=== PATIENT | male | born 1980 | race Caucasian/White ===

== ENCOUNTER 2019-07-31 18:10 | Emergency (ER) | payer BC, OTHER ==
[~2019-07-31] VITALS: Ht 182 cm; Wt 73.6 kg
[2019-07-31] MEDS ORDERED: LACTATED RINGERS 1,000 ML IV STA (18:41)
[2019-07-31] MEDS ORDERED: KETOROLAC 30 MG/ML VIAL IVP ONE (18:45)
[2019-07-31] MEDS ORDERED: ONDANSETRON 4 MG/2 ML (SDV) Z0FRAN IVP ONE (18:45)
[2019-07-31 18:51] LABS: HEMATOCRIT 48 % (40-54); MEAN CORPUSCULAR HEMOGLOBIN 30 PG (25-34); MEAN CORPUSCULAR HGB CONC 33 G/DL (32-36); MEAN CORPUSCULAR VOLUME 88 FL (80-99); PLATELET COUNT 314 10^3/uL (130-400); RED CELL DISTRIBUTION WIDTH 12.9 % (10.0-14.5); WHITE BLOOD COUNT 8.3 10^3/uL (4.3-11.0)
[2019-07-31 18:52] LABS: BASOPHILS # (AUTO) 0.1 10^3/uL (0.0-0.1); BASOPHILS % (AUTO) 1 % (0-10); EOSINOPHILS # (AUTO) 0.2 10^3/uL (0.0-0.3); EOSINOPHILS % (AUTO) 2 % (0-10); LYMPHOCYTES # (AUTO) 2.5 X 10^3 (1.0-4.0); LYMPHOCYTES % (AUTO) 31 % (12-44); MONOCYTES # (AUTO) 0.8 X 10^3 (0.0-1.0); MONOCYTES % (AUTO) 9 % (0-12); NEUTROPHILS # (AUTO) 4.8 X 10^3 (1.8-7.8); NEUTROPHILS % (AUTO) 57 % (42-75)
--- NOTE | 2019-07-31 18:57 | ED Abdominal Pain ---
General Stated Complaint: ABD PAIN History of Present Illness Date Seen by Provider: Jul 31, 2019 Time Seen by Provider: 18:20 Initial Comments The patient is a 39-year-old male with a history of tobacco abuse and no chronic medical problems for which he takes daily medication and no history of abdominal surgery. He presents with concern for acute onset of sharp, focal, right lower quadrant abdominal discomfort which is nonradiating and about 7 out of 10 in severity, with onset about an hour prior to arrival. Patient has never had this abdominal discomfort before. Symptoms occur in the setting of approximately 5 days of constipation with patient reporting that he has been unable to pass a stool over that entire interval. He states this is very unusual for him. Associated nausea with dry heaving and decreased by mouth food intake each day over the past several days. No associated fevers, hematemesis, hematochezia, melena, upper respiratory congestion/rhinorrhea, cough, shortness of breath or chest pain, flank pain, dysuria or hematuria. Patient has a secondary concern regarding an area of his left midthoracic paraspinal back which is focally sore and tender. His back discomfort is worse with movement of his arms and twisting his torso and with direct palpation and improved with resting. 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 He denies any lower back pain, pain on the same side of his back as abdominal symptoms are noted, pain to his midline back at any point from high cervical to low lumbar, loss of bowel or bladder, saddle anesthesia, new lower extremity weakness, numbness, tingling, new urinary retention, use of intravenous illegal drugs. Allergies and Home Medications Allergies Coded Allergies: No Known Drug Allergies (Unverified , 07/31/19) Patient Home Medication List Home Medication List Reviewed: Yes Review of Systems Review of Systems Constitutional: see HPI All Other Systems Reviewed Negative Unless Noted: Yes (Negative excepted noted.) Past Pslwowf-Vjvshe-Qyckkt Hx Past Med/Social Hx: Reviewed Nursing Past Med/Soc Hx Patient Social History Recent Foreign Travel: No Contact w/Someone Who Travel: No Family Medical History Reviewed Nursing Family Hx Physical Exam Vital Signs Vital Signs - First Documented 07/31/19 18:15 Temp 36.5 Pulse 87 Resp 18 B/P (MAP) 129/95 (106) Pulse Ox 96 O2 Delivery Room Air Capillary Refill : Height/Weight/BMI Height: '" Weight: lbs. oz. kg; BMI Method: General Appearance: no apparent distress Exam Comments This is a middle-aged male appearing nontoxic and in no acute distress. Head is normocephalic and atraumatic. Neck is supple and nontender. Oropharynx is moist. Lungs are clear to auscultation in all stations. There is a normal S1 and S2 without rubs or gallops and capillary refill is appropriate, less than 2 seconds globally. Abdomen is soft, nondistended and with mild focal right lower quadrant tenderness over McBurney's point without rebound or guarding. There is no upper or left-sided abdominal tenderness to palpation. Skin is warm and dry without cyanosis, clubbing or edema. Psychiatrically, the patient demonstrates appropriate mood and affect and is alert. Examination of the back reveals mild focal tenderness to the left paraspinal back musculature at about the T4 level. There is no midline bony/spinous process tenderness at this level or at any other level of the spine. There is no erythema, warmth, swelling or other surface abnormality/lesion appreciable to the back. Bilateral lower extremities are neurovascularly intact with strength 5 out of 5, sensation intact to light touch in all nerve distributions, DP/PT pulses 2+, capillary refill less than 2 seconds, feet warm and perfused. Progress/Results/Core Measures Results/Orders Lab Results Laboratory Tests Test 07/31/19 18:30 Range/Units White Blood Count 8.3 4.3-11.0 10^3/uL Red Blood Count 5.42 4.35-5.85 10^6/uL Hemoglobin 16.0 13.3-17.7 G/DL Hematocrit 48 40-54 % Mean Corpuscular Volume 88 80-99 FL Mean Corpuscular Hemoglobin 30 25-34 PG Mean Corpuscular Hemoglobin Concent 33 32-36 G/DL Red Cell Distribution Width 12.9 10.0-14.5 % Platelet Count 314 130-400 10^3/uL Mean Platelet Volume 9.0 7.4-10.4 FL Neutrophils (%) (Auto) 57 42-75 % Lymphocytes (%) (Auto) 31 12-44 % Monocytes (%) (Auto) 9 0-12 % Eosinophils (%) (Auto) 2 0-10 % Basophils (%) (Auto) 1 0-10 % Neutrophils # (Auto) 4.8 1.8-7.8 X 10^3 Lymphocytes # (Auto) 2.5 1.0-4.0 X 10^3 Monocytes # (Auto) 0.8 0.0-1.0 X 10^3 Eosinophils # (Auto) 0.2 0.0-0.3 10^3/uL Basophils # (Auto) 0.1 0.0-0.1 10^3/uL Urine Color YELLOW Urine Clarity CLOUDY Urine pH 8.0 5-9 Urine Specific [place] 1.015 L 1.016-1.022 Urine Protein NEGATIVE NEGATIVE Urine Glucose (UA) NEGATIVE NEGATIVE Urine Ketones NEGATIVE NEGATIVE Urine Nitrite NEGATIVE NEGATIVE Urine Bilirubin NEGATIVE NEGATIVE Urine Urobilinogen 0.2 NORMAL MG/DL Urine Leukocyte Esterase NEGATIVE NEGATIVE Urine RBC (Auto) NEGATIVE NEGATIVE Urine RBC 0-2 /HPF Urine WBC NONE /HPF Urine Squamous Epithelial Cells NONE /HPF Urine Crystals PRESNT /LPF Urine Amorphous Sediment LARGE RESHMA PHOSPHATE H /LPF Urine Bacteria NEGATIVE /HPF Urine Casts NONE /LPF Urine Mucus NONE /LPF Urine Culture Indicated NO Sodium Level 141 135-145 MMOL/L Potassium Level 4.1 3.6-5.0 MMOL/L Chloride Level 103 98-107 MMOL/L Carbon Dioxide Level 26 21-32 MMOL/L Anion Gap 12 5-14 MMOL/L Blood Urea Nitrogen 10 7-18 MG/DL Creatinine 0.90 0.60-1.30 MG/DL Estimat Glomerular Filtration Rate > 60 BUN/Creatinine Ratio 11 Glucose Level 92 70-105 MG/DL Calcium Level 10.0 8.5-10.1 MG/DL Corrected Calcium 8.5-10.1 MG/DL Total Bilirubin 0.3 0.1-1.0 MG/DL Aspartate Amino Transf (AST/SGOT) 20 5-34 U/L Alanine Aminotransferase (ALT/SGPT) 20 0-55 U/L Alkaline Phosphatase 51 40-136 U/L Total Protein 7.5 6.4-8.2 GM/DL Albumin 5.1 H 3.2-4.5 GM/DL Lipase 40 8-78 U/L My Orders Orders - OSVALDO PEARCE MD Ondansetron Injection (Zofran Injectio (07/31/19 18:45) Lactated Ringers (Lr 1000 Ml Iv Solution (07/31/19 18:41) Ed Iv/Invasive Line Start (07/31/19 18:41) Comprehensive Metabolic Panel (07/31/19 18:41) Lipase (07/31/19 18:41) Ua Culture If Indicated (07/31/19 18:41) Cbc With Automated Diff (07/31/19 18:41) Ct Abdomen/Pelvis W (07/31/19 18:41) Ketorolac Injection (Toradol Injection) (07/31/19 18:45) Iohexol Injection (Omnipaque 350 Mg/Ml 1 (07/31/19 19:00) Received Contrast (Hold Metformin- Contr (07/31/19 19:00) Sodium Chloride Flush (Catheter Flush Sy (07/31/19 19:00) Ns (Ivpb) (Sodium Chloride 0.9% Ivpb Bag (07/31/19 19:00) Medications Given in ED Current Medications Medications Dose Ordered Sig/Duane Route Start Time Stop Time Status Last Admin Dose Admin Iohexol 100 ml ONCE ONCE IV 07/31/19 19:00 07/31/19 19:01 DC 07/31/19 19:04 100 ML Ketorolac Tromethamine 30 mg ONCE ONCE IVP 07/31/19 18:45 07/31/19 18:46 DC 07/31/19 19:19 30 MG Ondansetron HCl 4 mg ONCE ONCE IVP 07/31/19 18:45 07/31/19 18:46 DC 07/31/19 19:19 4 MG Sodium Chloride 10 ml NEEDED PRN IV 07/31/19 19:00 07/31/19 19:04 10 ML Sodium Chloride 100 ml ONCE ONCE IV 07/31/19 19:00 07/31/19 19:01 DC 07/31/19 19:04 100 ML Vital Signs/I&O 07/31/19 18:15 Temp 36.5 Pulse 87 Resp 18 B/P (MAP) 129/95 (106) Pulse Ox 96 O2 Delivery Room Air Progress Progress Note : Time: 19:01 Progress Note 39-year-old male, otherwise healthy, presents with 5 days of constipation with associated nausea and dry heaving, now also with focal right lower quadrant tenderness over McBurney's point for the last hour+. Symptoms may simply relate to obstipation (by history this seems likely) but will check labs and give IV fluids and medication for discomfort and nausea as per nursing flowsheet and we'll check a CT scan of the abdomen and pelvis to further characterize the patient's symptoms. The patient also does have some mid thoracic left-sided paraspinal tenderness which seems musculoskeletal and is not midline and there are no red flags by history or exam for spinal epidural abscess, dissection or other acute process involving the back. Suspect back discomfort is either workrelated or secondary to strain from dry heaving and/or bearing down to have a bowel movement recently. We will complete workup as above and then reevaluate. Patient and family understand and agree with this plan of care. Update 2008: Patient is feeling better upon reassessment and is resting comfortably in no distress. Labs unremarkable and reassuring and imaging reveals increased stool load at the cecum and in the transverse colon, anatomically correlating with the patient's abdominal discomfort. CT is otherwise essentially unremarkable. Options discussed with the patient including enema versus discharge home with a bowel regimen and the patient would like to try a bowel regimen. We will also release him with some medication for his back discomfort. He is counseled to follow up with his primary care physician Dr. Johnston in the next 1 to 2 days in the clinic and he and his family understand that if he feels worse instead of better or develops other new symptoms of concern that he should return to the Emergency Department immediately for reevaluation. All questions are answered. Departure Impression Primary Impression: Right lower quadrant abdominal pain Additional Impressions: Vomiting Constipation Left paraspinal back pain Disposition: 01 HOME, SELF-CARE Condition: Improved Departure-Patient Inst. Referrals: JOEL JOHNSTON MD (PCP/Family) Primary Care Physician Patient Instructions: Constipation, Adult (DC), Nausea and Vomiting, Adult Add. Discharge Instructions: Please follow up with Dr. Johnston in the clinic in the next 1-2 days as discussed. Use the medicine as discussed for your symptoms. Return immediately to the emergency department with recurrent or worsening symptoms or with any other new symptoms of concern. Scripts Sennosides (Senna) 8.6 Mg Tablet 17.2 MG PO QHS for 5 Days, #14 TAB Prov: OSVALDO PEARCE MD 07/31/19 Polyethylene Glycol 3350 (Miralax) 17 Gm Powd.pack 17 GM PO BID for 28 Days, #1 EACH Prov: OSVALDO PEARCE MD 07/31/19 Ondansetron (Ondansetron Odt) 4 Mg Tab.rapdis 4 MG PO Q8H for nausea, #10 TAB Prov: OSVALDO PEARCE MD 07/31/19 Cyclobenzaprine HCl (Cyclobenzaprine HCl) 10 Mg Tablet 10 MG PO Q8H PRN for back pain/spasm, #12 TAB 0 Refills Prov: OSVALDO PEARCE MD 07/31/19 Acetaminophen (Tylenol) 325 Mg Capsule 975 MG PO Q8H for 5 Days, #50 CAP Prov: OSVALDO PEARCE MD 07/31/19 Ibuprofen (Ibuprofen) 800 Mg Tablet 800 MG PO Q8H PRN for PAIN-MILD, #30 TAB Prov: OSVALDO PEARCE MD 07/31/19 OSVALDO PEARCE MD Jul 31, 2019 18:57
[2019-07-31 18:59] LABS: CLARITY,URINE CLOUDY; COLOR,URINE YELLOW
[2019-07-31 19:00] LABS: BACTERIA,URINE NEGATIVE /HPF; BILIRUBIN,URINE NEGATIVE (NEGATIVE); GLUCOSE, URINE (UA) NEGATIVE (NEGATIVE); KETONES,URINE NEGATIVE (NEGATIVE); LEUKOCYTE ESTERASE ,URINE NEGATIVE (NEGATIVE); NITRITE,URINE NEGATIVE (NEGATIVE); PROTEIN,URINE NEGATIVE (NEGATIVE); RBC,URINE 0-2 /HPF; UROBILINOGEN,URINE 0.2 MG/DL (NORMAL)
[2019-07-31] MEDS ORDERED: IOHEXOL 350 MG/ML 100 ML (OMNIPAQUE 350) VIAL IV ONE (19:00)
[2019-07-31] MEDS ORDERED: NS 100 ML (IVPB) BAG IV ONE (19:00)
[2019-07-31] MEDS ORDERED: CATHETER FLUSH 10 ML SYR IV PRN (19:00)
[2019-07-31] MEDS ORDERED: HOLD METFORMIN - RECEIVED CONTRAST 20 ML VIAL IV SCH (19:00)
[2019-07-31 19:01] LABS: AMORPHOUS SEDIMENT,UR LARGE AMOR PHOSPHATE /LPF
[2019-07-31 19:12] LABS: SODIUM 141 MMOL/L (135-145)
[2019-07-31 19:13] LABS: ALANINE AMINOTRANSFERASE 20 U/L (0-55); ALKALINE PHOSPHATASE 51 U/L (40-136); BILIRUBIN,TOTAL 0.3 MG/DL (0.1-1.0); BUN/CREATININE RATIO 11; CARBON DIOXIDE 26 MMOL/L (21-32); CHLORIDE 103 MMOL/L (98-107); GFR ESTIMATED > 60; GLUCOSE 92 MG/DL (70-105); POTASSIUM 4.1 MMOL/L (3.6-5.0); TOTAL PROTEIN 7.5 GM/DL (6.4-8.2)
[2019-07-31 19:14] LABS: ALBUMIN 5.1 GM/DL (3.2-4.5); LIPASE 40 U/L (8-78)
--- NOTE | 2019-07-31 19:47 | Diagnostic Imaging Report ---
PROCEDURE: CT abdomen and pelvis with contrast. TECHNIQUE: Multiple contiguous axial images were obtained through the abdomen and pelvis after administration of intravenous contrast. Auto Exposure Controls were utilized during the CT exam to meet ALARA standards for radiation dose reduction. INDICATION: Right lower quadrant pain There are no prior studies available for comparison. The appendix was visualized and is not abnormally thickened. There is no no distortion of the periappendiceal fat to suggest acute appendicitis either. There are numerous fluid-filled segments of small bowel. This appearance is nonspecific and could be secondary to ileus related to enteritis. Clinical followup is recommended. There is also fair amount of fecal material in the cecum and ascending colon. There is no pelvic mass or free fluid collection noted. Urinary bladder and prostate gland are grossly unremarkable. The liver is homogeneous and not enlarged. The spleen, pancreas, adrenals, kidneys, gallbladder, aorta and inferior vena cava show no sign of an acute abnormality. The stomach is not well-distended and consequently difficult to assess. The lung bases are clear. The bone windows show no sign of a fracture or of a destructive lesion. IMPRESSION: 1. The fluid filled segments of small bowel are nonspecific. These could be secondary to an ileus perhaps related to enteritis. Clinical followup is recommended. 2. There is no acute abnormality of the abdomen or pelvis noted otherwise. There is a fair amount of fecal material in the cecum and ascending colon however. 3. These results were discussed with Dr. PEARCE.. Dictated by: Dictated on workstation # [id number]
[2019-07-31 20:11] VITALS: BP 121/80
[2019-07-31] MEDS ORDERED: SENN-141 PO (20:18)
[2019-07-31] MEDS ORDERED: ACET325C5 PO (20:18)
[2019-07-31] MEDS ORDERED: IBUP-1780 PO (20:18)
[2019-07-31] MEDS ORDERED: CYCL10TA9 PO (20:18)
[2019-07-31] MEDS ORDERED: POLY17PO6 PO (20:18)
[2019-07-31] MEDS ORDERED: ONDA4TAB11 PO (20:18)
== END 2019-07-31 20:25 | disposition home or self-care (01) ==
LOC: ER FS 18:13
DX: K59.00 Constipation, unspecified (principal); R11.2 Nausea with vomiting, unspecified; M54.6 Pain in thoracic spine
CPT/HCPCS: 36415; 74177; 80053; 81000; 83690; 85025; 96374; 96375

== ENCOUNTER 2020-01-31 09:47 | Emergency (ER) | payer BC ==
[~2020-01-31] VITALS: Ht 182.8 cm; Wt 73.7 kg
[~2020-01-31 09:47] MED LIST: ACET325C7 PO; CYCL10TA9 PO; IBUP-1780 PO; ONDA4TAB11 PO; POLY17PO6 PO; SENN-234 PO
--- OUTSIDE RECORDS SUMMARY | 2020-01-31 10:00 | XMS REPORT | Continuity of Care Document ---
Demographics x Preferred Language Unknown Marital Status Unknown Yazidi Affiliation Unknown Race Unknown Ethnic Group Unknown Author Organization Unknown Address Unknown Phone Unavailable Allergies Active Description Code Type Severity Reaction Onset Reported/Identified Relationship to Patient Clinical Status Yes No Known Drug Allergies [id number] Drug Allergy Unknown N/A 07/31/2019 Medications There is no data. Problems Date Dx Coded Attending Type Code Diagnosis Diagnosed By 08/04/2019 OSVALDO PEARCE MD, Ot K59. 00 CONSTIPATION, UNSPECIFIED 08/04/2019 OSVALDO PEARCE MD, Ot M54. 6 PAIN IN THORACIC SPINE 08/04/2019 OSVALDO PEARCE MD, Ot R10. 31 RIGHT LOWER QUADRANT PAIN 08/04/2019 OSVALDO PEARCE MD, Ot R11. 2 NAUSEA WITH VOMITING, UNSPECIFIED Procedures There is no data. Results Test Result Range Complete blood count (CBC) with automate d white blood cell (WBC) differential - 07/31/19 18:30 Blood leukocytes automated count (number/volume) 8.3 10*3/uL 4.3-11.0 Blood erythrocytes automated count (number/volume) 5.42 10*6/uL 4.35-5.85 Venous blood hemoglobin measurement (mass/volume) 16.0 g/dL 13.3-17.7 Blood hematocrit (volume fraction) 48 % 40-54 Automated erythrocyte mean corpuscular volume 88 [ foz_us] 80-99 Automated erythrocyte mean corpuscular h emoglobin (mass per erythrocyte) 30 pg 25-34 Automated erythrocyte mean corpuscular h emoglobin concentration measurement (mass/volume) 33 g/dL 32-36 Automated erythrocyte distribution width ratio 12. 9 % 10.0- 14.5 Automated blood platelet count (count/volume) 314 10*3/uL 130-400 Automated blood platelet mean volume measurement 9.0 [foz_us] 7.4-10.4 Automated blood neutrophils/100 leukocytes 57 % 42-75 Automated blood lymphocytes/100 leukocytes 31 % 12-44 Blood monocytes/100 leukocytes 9 % 0-12 Automated blood eosinophils/100 leukocytes 2 % 0-10 Automated blood basophils/100 leukocytes 1 % 0-10 Blood neutrophils automated count (number/volume) 4.8 10*3 1.8-7.8 Blood lymphocytes automated count (number/volume) 2.5 10*3 1.0-4.0 Blood monocytes automated count (number/volume) 0. 8 10*3 0.0-1.0 Automated eosinophil count 0.2 10*3/uL 0 .0-0.3 Automated blood basophil count (count/volume) 0.1 10*3/uL 0.0-0.1 Complete urinalysis with reflex to cultu re - 07/31/19 18:30 Urine color determination YELLOW NRG Urine clarity determination CLOUDY NR G Urine pH measurement by test strip 8.0 5-9 Specific gravity of urine by test strip 1.015 1.016-1.022 Urine protein assay by test strip, semi-quantitative NEGATIVE NEGATIVE Urine glucose detection by automated test strip NE GATIVE NEGATIVE Erythrocytes detection in urine sediment by light micr oscopy NEGATIVE NEGATIVE Urine ketones detection by automated test strip NE GATIVE NEGATIVE Urine nitrite detection by test strip NEGATIVE NEGATIVE Urine total bilirubin detection by test strip NEGA TIVE NEGATIVE Urine urobilinogen measurement by automated test strip (mass/volume) 0.2 mg/dL NORMAL Urine leukocyte esterase detection by dipstick NEG ATIVE NEGATIVE Automated urine sediment erythrocyte cou nt by microscopy (number/high power field) [HPF] NRG Automated urine sediment leukocyte count by microscopy (number/high power field) NONE NRG Bacteria detection in urine sediment by light microsco py NEGATIVE NRG Squamous epithelial cells detection in u rine sediment by light microscopy NONE NRG Crystals detection in urine sediment by light microsco py PRESNT NRG Casts detection in urine sediment by light microscopy NONE NRG Mucus detection in urine sediment by light microscopy NONE NRG Complete urinalysis with reflex to culture NO NRG Amorphous sediment detection in urine sediment by ligh t microscopy LARGE RESHMA PHOSPHATE NRG Comprehensive metabolic panel - 07/31/19 18:30 Serum or plasma sodium measurement (moles/volume) 141 mmol/L 135-145 Serum or plasma potassium measurement (moles/volume) 4.1 mmol/L 3.6-5.0 Serum or plasma chloride measurement (moles/volume) 103 mmol/L 98-107 Carbon dioxide 26 mmol/L 21-32 Serum or plasma anion gap determination (moles/volume) 12 mmol/L 5-14 Serum or plasma urea nitrogen measurement (mass/volume ) 10 mg/dL 7-18 Serum or plasma creatinine measurement (mass/volume) 0.90 mg/dL 0.60-1.30 Serum or plasma urea nitrogen/creatinine mass ratio 11 NRG Serum or plasma creatinine measurement w ith calculation of estimated glomerular filtration rate > NRG Serum or plasma glucose measurement (mass/volume) 92 mg/dL 70-105 Serum or plasma calcium measurement (mass/volume) 10.0 mg/dL 8.5-10.1 Serum or plasma total bilirubin measurement (mass/volu me) 0.3 mg/dL 0.1-1.0 Serum or plasma alkaline phosphatase fatemeh surement (enzymatic activity/volume) 51 U/L 40-136 Serum or plasma aspartate aminotransfera se measurement (enzymatic activity/volume) 20 U/L 5-34 Serum or plasma alanine aminotransferase measurement (enzymatic activity/volume) 20 U/L 0-55 Serum or plasma protein measurement (mass/volume) 7.5 g/dL 6.4-8.2 Serum or plasma albumin measurement (mass/volume) 5.1 g/dL 3.2-4.5 Lipase - 07/31/19 18:30 Lipase 40 U/L 8-78 Encounters ACCT No. Visit Date/Time Discharge Status Pt. Type Provider Facility Loc./Unit Complaint [id number] 01/25/2020 15:45:00 01/25/2020 23:59: 59 [facility] [id number] 07/31/2019 18:13:00 019 20:25:00 DIS Outpatient PORTIA ARDON, OSVALDO Silva [facility] ER FS ABD PAIN
--- OUTSIDE RECORDS SUMMARY | 2020-01-31 10:00 | XMS REPORT ---
Author Author Tre DELONG Organization [facility] Address [address] [place] [address] Care Team Providers Care Steam[employer] Att[employer] Name Role Phone SAMANTHA DELONG Unavailable PROBLEMS Type Condition ICD9-CM Code LAS55-ZM Code Onset Dates Condition S tatus SNOMED Code Problem Allergic rhinitis J30.9 Active 61 [id number] Problem Other chronic pain G89.29 Active 8 [id number] ALLERGIES Substance Reaction Event Type Date Status DayQuil Multi-Symptom rash Drug Allergy Dec, Active ENCOUNTERS Encounter Location Date Diagnosis [address] [address] [address], [place] [address] Oct, Encounter for tobacco use ce ssation counseling Z71.6 and Elevated blood pressure reading R03.0 [facility] [address] [id number] [place] [address] Aug, [address] [place] [address] Apr, Physical exam Z00.00 [facility] [address] [place] [address] Mar, Acute low back pain M54.5 [address] [place] [address] Mar, Other chronic pain G89.29 an d Low back pain M54.5 [address] [place] [address] Dec, Bronchitis J40 IMMUNIZATIONS Vaccine Route Administration Date Status DEXAMETHASONE 4MG/ML (PER 1 MG) IM Intramuscular January 11, 2019 Administered DEPO MEDROL 80 MG/ML IM Intramuscular January 11, 2019 Administer ed SOCIAL HISTORY Never Assessed REASON FOR VISIT Cough, sore throat, [place] MA PLAN OF CARE Activity Details Follow Up prn Reason: VITAL SIGNS Height 72 in 2019-01-11 Weight 161 lbs 2019-01-11 Temperature 96.9 degrees Fahrenheit 2019-01-11 Heart Rate 95 bpm 2019-01-11 Respiratory Rate 18 2019-01-11 BMI 21.83 kg/m2 2019-01-11 Blood pressure systolic 124 mmHg 2019-01-11 Blood pressure diastolic 90 mmHg 2019-01-11 MEDICATIONS Medication Instructions Dosage Frequency Start Date End Date Duration S tatus Cetirizine HCl 10 MG Orally Once a day 1 tablet 24h Dec, 30 day(s) Active ProAir HFA 108 (90 Base) MCG/ACT Inhalation every 6 hrs 2 puffs as needed 6h Dec, Active RESULTS No Results PROCEDURES Procedure Date Ordered Result Body Site DEPO MEDROL 80 MG/ML January 11, 2019 THER/PROPH/DIAG INJ, SC/IM January 11, 2019 DEXAMETHASONE 4MG/ML (PER 1 MG) January 11, 2019 INSTRUCTIONS MEDICATIONS ADMINISTERED No Known Medications MEDICAL (GENERAL) HISTORY Type Description Date Medical History Allergic rhinitis Surgical History cyst on lungs 2000 Hospitalization History cyst on lungs
[2020-01-31] MEDS ORDERED: DICL75TA2 PO (10:10)
--- NOTE | 2020-01-31 10:10 | ED Lower Extremity ---
General Chief Complaint: Lower Extremity Stated Complaint: LT LEG PAIN Source: patient, RN notes reviewed, old records History of Present Illness Date Seen by Provider: Jan 31, 2020 Time Seen by Provider: 09:50 Initial Comments This patient is a 40-year-old male that presents to the emergency department complaining of sciatica like pain on the left. Patient was seen here last Friday for the same was given a steroid chart. Patient states usually when has issues with his back Eagles the chiropractor. Has been having sciatica since. Patient states he was told by his primary care physician Dr. dumont initially he may need an MRI of his low back. States this is chronic issue. Patient denies injury. Onset: last week Modifying Factors: Worse With Cold Therapy, Worse With Immobilization, Worse With Jarring, Worse With Movement, Worse With Pain Medication, Worse With Rest, Worse With Other Allergies and Home Medications Allergies Coded Allergies: No Known Drug Allergies (Unverified , 07/31/19) Home Medications Acetaminophen 325 Mg Capsule, 975 MG PO Q8H Prescribed by: OSVALDO PEARCE on 07/31/192017 Cyclobenzaprine HCl 10 Mg Tablet, 10 MG PO Q8H PRN for back pain/spasm Prescribed by: OSVALDO PEARCE on 07/31/192017 Ibuprofen 800 Mg Tablet, 800 MG PO Q8H PRN for PAIN-MILD Prescribed by: OSVALDO PEARCE on 07/31/192017 Ondansetron 4 Mg Tab.rapdis, 4 MG PO Q8H Prescribed by: OSVALDO PEARCE on 07/31/192017 Polyethylene Glycol 3350 17 Gm Powd.pack, 17 GM PO BID Prescribed by: OSVALDO PEARCE on 07/31/192017 Sennosides 8.6 Mg Tablet, 17.2 MG PO QHS Prescribed by: OSVALDO PEARCE on 07/31/192017 Patient Home Medication List Home Medication List Reviewed: Yes Review of Systems Constitutional: No no symptoms reported; see HPI; No chills, No diaphoresis, No dizziness, No fever, No malaise, No weakness, No weight gain, No weight loss, No other EENTM: No see HPI, No no symptoms reported, No ear discharge, No hearing loss, No ear pain, No blurred vision, No double vision, No eye pain, No tearing, No vision loss, No dental problems, No hoarseness, No mouth pain, No mouth swelling, No epistaxis, No nose congestion, No nose pain, No throat pain, No throat swelling, No other Respiratory: No no symptoms reported, No see HPI, No cough, No dyspnea on exertion, No hemoptysis, No orthopnea, No phlegm, No short of breath, No stridor, No wheezing, No other Cardiovascular: No no symptoms reported, No see HPI, No chest pain, No edema, No Hx of Intervention, No palpitations, No syncope, No vascular heart diseas, No other Gastrointestinal: No RUQ, No LUQ, No RLQ, No LLQ, No no symptoms reported, No see HPI, No abdominal pain, No constipation, No diarrhea, No dysphagia, No hematemesis, No heartburn, No jaundice, No loss of appetite, No melena, No nausea, No vomiting, No other Genitourinary: No no symptoms reported, No see HPI, No decreased output, No discharge, No dysuria, No frequency, No hematuria, No hesitancy, No incontinence, No nocturia, No pain, No other Musculoskeletal: back pain, other (sciatica down the left posterior leg) Psychiatric/Neurological: See HPI Past Zzlqlgv-Bdwage-Bdywox Hx Patient Social History Alcohol Beverage of Choice: Beer Type Used: Cigarettes 2nd Hand Smoke Exposure: No Recent Foreign Travel: No Contact w/Someone Who Travel: No Recent Hopitalizations: No Past Medical History Surgeries: Yes Respiratory: No Cardiac: No Neurological: No Genitourinary: No Gastrointestinal: No Musculoskeletal: No Endocrine: No HEENT: No Cancer: No Psychosocial: No Integumentary: No Blood Disorders: No Physical Exam Vital Signs Capillary Refill : Height, Weight, BMI Height: '" Weight: lbs. oz. kg; 22.00 BMI Method: General Appearance: WD/WN, no apparent distress Cardiovascular: normal peripheral pulses, regular rate, rhythm, no edema, no gallop, no JVD, no murmur Respiratory: chest non-tender, lungs clear, normal breath sounds, no respiratory distress, no accessory muscle use Gastrointestinal: normal bowel sounds, non tender, soft, no organomegaly, no pulsatile mass Back: normal inspection, no CVA tenderness, no vertebral tenderness, decreased range of motion, other (complaining of low back pain with sciatica down left leg.) Hips: right hip non-tender; bilateral hip non-tender; right hip normal inspection; bilateral hip normal inspection; right hip normal range of motion; bilateral hip normal range of motion; right hip no evidence of injury; bilateral hip no evidence of injury; right hip bone tenderness, right hip deformity, right hip ecchymosis Legs: right leg non-tender; bilateral leg non-tender; right leg normal inspection; bilateral leg normal inspection; right leg normal range of motion; bilateral leg normal range of motion; right leg no evidence of injury; bilateral leg no evidence of injury; right leg abrasions, right leg limited range of motion, right leg swelling Reflexes: 0 knee (R); 3+ knee (R), 3+ knee (L), 3+ ankle (R), 3+ ankle (L) 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 Patient be given a prescription for diclofenac. Take medications as instructed. Alternate heat and ice in the low back stretching exercises as instructed. Follow-up through primary care physician in 2-3 days for further evaluation and treatment. Possible outpatient order for MRI as instructed. Departure Impression Primary Impression: Sciatic leg pain Disposition: 01 HOME, SELF-CARE Condition: Stable Departure-Patient Inst. Decision time for Depature: 10:09 Referrals: SELFWILMA MD (PCP/Family) Primary Care Physician Patient Instructions: Sciatica Exercises, Sciatica (DC) Add. Discharge Instructions: Patient be given a prescription for diclofenac. Take medications as instructed. Alternate heat and ice in the low back stretching exercises as instructed. Follow-up through primary care physician in 2-3 days for further evaluation and treatment. Possible outpatient order for MRI as instructed. All discharge instructions reviewed with patient and/or family. Voiced understanding. Scripts Diclofenac Sodium (Diclofenac Sodium) 75 Mg Tablet. 75 MG PO BID for 10 Days, #20 TAB 0 Refills Prov: QUINTIN MILLS MD 01/31/20 QUINTIN MILLS MD Jan 31, 2020 10:10
[2020-01-31 10:18] VITALS: BP 141/84
== END 2020-01-31 10:18 | disposition home or self-care (01) ==
LOC: EDUNIT# 09:47 → ER FS 09:49
DX: M54.42 Lumbago with sciatica, left side (principal)
CPT/HCPCS: 99283

== ENCOUNTER 2021-10-31 10:51 | Emergency (ER) | payer BC ==
[~2021-10-31] VITALS: Ht 180.3 cm; Wt 68.4 kg
[~2021-10-31 10:51] MED LIST changes: +CYCL10TA25 PO; -CYCL10TA9 PO; +DICL75TA2 PO
[2021-10-31] MEDS ORDERED: LACTATED RINGERS 1,000 ML IV ONE (11:30)
--- NOTE | 2021-10-31 11:36 | ED General ---
General Chief Complaint: Dizziness/Syncope Stated Complaint: SYNCOPAL EPISODE Source of Information: Patient Exam Limitations: No Limitations History of Present Illness Date Seen by Provider: Oct 31, 2021 Time Seen by Provider: 11:07 Initial Comments Here with report of syncopal episode while getting blood draw at the clinic today. Apparently has had near syncope over the last 2 months and they are working him up for that. He has seen primary care provider and has also ongoing evaluation with cardiology. No findings noted so far. He has had 20 to 25 pound weight loss over the last 2 months and he is not sure about that. Uses marijuana occasionally but otherwise denies other drugs. Does not drink alcohol currently. Denies ever having anything like this before. Denies being on any medication. Timing/Duration: Getting Worse, Other (2 months) Severity: Moderate Associated Systoms: No Chest Pain, No Cough, No Fever/Chills; Loss of Appetite, Malaise; No Shortness of Air; Syncope, Weakness Allergies and Home Medications Allergies Coded Allergies: No Known Drug Allergies (Unverified , 07/31/19) Patient Home Medication List Home Medication List Reviewed: Yes Acetaminophen (Tylenol) 325 Mg Capsule, 975 MG PO Q8H Prescribed by: OSVALDO PEARCE on 07/31/192017 Cyclobenzaprine HCl (Cyclobenzaprine HCl) 10 Mg Tablet, 10 MG PO Q8H PRN for back pain/spasm Prescribed by: OSVALDO PEARCE on 07/31/192017 Diclofenac Sodium (Diclofenac Sodium) 75 Mg Tablet.dr, 75 MG PO BID Prescribed by: QUINTIN MILLS on 01/31/20 1010 Ibuprofen (Ibuprofen) 800 Mg Tablet, 800 MG PO Q8H PRN for PAIN-MILD Prescribed by: OSVALDO PEARCE on 07/31/192017 Ondansetron (Ondansetron Odt) 4 Mg Tab.rapdis, 4 MG PO Q8H Prescribed by: OSVALDO PEARCE on 07/31/192017 Polyethylene Glycol 3350 (Miralax) 17 Gm Powd.pack, 17 GM PO BID Prescribed by: OSVALDO PEARCE on 07/31/192017 Sennosides (Senna) 8.6 Mg Tablet, 17.2 MG PO QHS Prescribed by: OSVALDO PEARCE on 07/31/192017 Review of Systems Review of Systems Constitutional: see HPI, weight loss EENTM: No nose congestion, No throat pain Respiratory: No cough, No short of breath Cardiovascular: No chest pain; syncope Gastrointestinal: No nausea, No vomiting Genitourinary: no symptoms reported Musculoskeletal: No back pain; muscle weakness Skin: no symptoms reported Psychiatric/Neurological: Anxiety, Tingling (Hands especially when he is breathing fast), Weakness All Other Systems Reviewed Negative Unless Noted: Yes Past Ufaqlib-Opmvzb-Ewobog Hx Past Medical History Surgeries: Yes Respiratory: No Cardiac: No Neurological: No Genitourinary: No Gastrointestinal: No Musculoskeletal: Yes (Chronic lower back pain, sciatica) Back Injury Endocrine: No HEENT: No Cancer: No Psychosocial: No Integumentary: No Blood Disorders: No Family Medical History Reviewed Nursing Family Hx Physical Exam Vital Signs Capillary Refill : Height, Weight, BMI Height: '" Weight: lbs. oz. kg; 22.00 BMI Method: General Appearance: Anxious, Thin HEENT: PERRL/EOMI, Pharynx Normal Neck: Non Tender, Supple Respiratory: Lungs Clear, Normal Breath Sounds Cardiovascular: Regular Rate, Rhythm, No Murmur Gastrointestinal: No Organomegaly, No Pulsatile Mass, Non Tender, Soft Back: Normal Inspection, No CVA Tenderness, No Vertebral Tenderness Extremity: Normal Range of Motion, Non Tender, No Pedal Edema Neurologic/Psychiatric: Alert, Oriented x3, Other (Seems to be globally weak) Skin: Normal Color, Warm/Dry Progress/Results/Core Measures Suspected Sepsis SIRS Temperature: Pulse: Respiratory Rate: Laboratory Tests 10/31/21 11:10: White Blood Count 7.1 Blood Pressure / Mean: Laboratory Tests 10/31/21 11:10: Creatinine 0.85, Platelet Count 321, Total Bilirubin 0.4 Results/Orders Lab Results Laboratory Tests Test 10/31/21 11:10 10/31/21 13:00 Range/Units White Blood Count 7.1 4.3-11.0 10^3/uL Red Blood Count 5.14 4.30-5.52 10^6/uL Hemoglobin 14.4 13.3-17.7 g/dL Hematocrit 44 40-54 % Mean Corpuscular Volume 86 80-99 fL Mean Corpuscular Hemoglobin 28 25-34 pg Mean Corpuscular Hemoglobin Concent 33 32-36 g/dL Red Cell Distribution Width 13.0 10.0-14.5 % Platelet Count 321 130-400 10^3/uL Mean Platelet Volume 9.0 9.0-12.2 fL Neutrophils (%) (Auto) 46 42-75 % Lymphocytes (%) (Auto) 41 12-44 % Monocytes (%) (Auto) 11 0-12 % Eosinophils (%) (Auto) 1 0-10 % Basophils (%) (Auto) 1 0-10 % Neutrophils # (Auto) 3.3 1.8-7.8 X 10^3 Lymphocytes # (Auto) 2.9 1.0-4.0 X 10^3 Monocytes # (Auto) 0.8 0.0-1.0 X 10^3 Eosinophils # (Auto) 0.1 0.0-0.3 10^3/uL Basophils # (Auto) 0.1 0.0-0.1 10^3/uL Sodium Level 142 135-145 MMOL/L Potassium Level 4.2 3.6-5.0 MMOL/L Chloride Level 106 98-107 MMOL/L Carbon Dioxide Level 24 21-32 MMOL/L Anion Gap 12 5-14 MMOL/L Blood Urea Nitrogen 11 7-18 MG/DL Creatinine 0.85 0.60-1.30 MG/DL Estimat Glomerular Filtration Rate 99 BUN/Creatinine Ratio 13 Glucose Level 86 70-105 MG/DL Calcium Level 9.6 8.5-10.1 MG/DL Corrected Calcium 8.5-10.1 MG/DL Magnesium Level 2.1 1.6-2.4 MG/DL Total Bilirubin 0.4 0.1-1.0 MG/DL Aspartate Amino Transf (AST/SGOT) 17 5-34 U/L Alanine Aminotransferase (ALT/SGPT) 16 0-55 U/L Alkaline Phosphatase 50 40-136 U/L C-Reactive Protein < 0.30 <0.50 MG/DL Total Protein 6.5 6.4-8.2 GM/DL Albumin 4.7 H 3.2-4.5 GM/DL Urine Color YELLOW Urine Clarity CLEAR Urine pH 7.0 5-9 Urine Specific Cochrane 1.015 L 1.016-1.022 Urine Protein NEGATIVE NEGATIVE Urine Glucose (UA) NEGATIVE NEGATIVE Urine Ketones NEGATIVE NEGATIVE Urine Nitrite NEGATIVE NEGATIVE Urine Bilirubin NEGATIVE NEGATIVE Urine Urobilinogen 0.2 < = 1.0 MG/DL Urine Leukocyte Esterase NEGATIVE NEGATIVE Urine RBC (Auto) NEGATIVE NEGATIVE Urine RBC RARE /HPF Urine WBC 2-5 /HPF Urine Squamous Epithelial Cells NONE /HPF Urine Crystals PRESENT H /LPF Urine Amorphous Sediment FEW ERSHMA URATES H /LPF Urine Bacteria NEGATIVE /HPF Urine Casts NONE /LPF Urine Mucus NEGATIVE /LPF Urine Culture Indicated NO Urine Opiates Screen NEGATIVE NEGATIVE Urine Oxycodone Screen NEGATIVE NEGATIVE Urine Methadone Screen NEGATIVE NEGATIVE Urine Propoxyphene Screen NEGATIVE NEGATIVE Urine Barbiturates Screen NEGATIVE NEGATIVE Ur Tricyclic Antidepressants Screen NEGATIVE NEGATIVE Urine Phencyclidine Screen NEGATIVE NEGATIVE Urine Amphetamines Screen NEGATIVE NEGATIVE Urine Methamphetamines Screen NEGATIVE NEGATIVE Urine Benzodiazepines Screen NEGATIVE NEGATIVE Urine Cocaine Screen NEGATIVE NEGATIVE Urine Cannabinoids Screen POSITIVE H NEGATIVE My Orders Orders - JEREMIE GOMEZ MD Cbc With Automated Diff (10/31/21 11:20) Comprehensive Metabolic Panel (10/31/21 11:20) Magnesium (10/31/21 11:20) Crp Fs (10/31/21 11:20) Ed Iv/Invasive Line Start (10/31/21 11:20) Lactated Ringers (Lr 1000 Ml Iv Solution (10/31/21 11:30) Ct Abdomen/Pelvis W (10/31/21 12:49) Iohexol Injection (Omnipaque 350 Mg/Ml 1 (10/31/21 13:00) Received Contrast (Hold Metformin- Contr (10/31/21 13:00) Ns (Ivpb) (Sodium Chloride 0.9% Ivpb Bag (10/31/21 13:00) Drug Screen Stat (Urine) (10/31/21 13:10) Ua Culture If Indicated (10/31/21 13:10) Medications Given in ED Current Medications Medications Dose Ordered Sig/Duane Route Start Time Stop Time Status Last Admin Dose Admin Iohexol 100 ml ONCE ONCE IV 10/31/21 13:00 10/31/21 13:01 DC 10/31/21 13:04 100 ML Lactated Ringer's 1,000 ml @ 0 mls/hr Q0M ONCE IV 10/31/21 11:30 10/31/21 11:31 DC 10/31/21 12:00 1,000 MLS/HR Sodium Chloride 100 ml ONCE ONCE IV 10/31/21 13:00 10/31/21 13:01 DC 10/31/21 13:04 100 ML Vital Signs/I&O Capillary Refill : Progress Note : Progress Note Seen and evaluated. IV, labs, LR 1 L bolus ordered. We will consider further evaluation based on labs. Monitor patient. 1344: CT abdomen pelvis ordered due to rapid weight loss. This was negative. Overall I do not find any acute or significant findings that require further work-up here. I will send a copy of the chart to their clinic. I did discuss all of this with the patient. He is actually doing much better now. Discharged home with return precautions. Patient verbalized understanding of instructions and agreement with plan. Diagnostic Imaging Diagonstic Imaging: CT Plain Films/CT/US/NM/MRI: abdomen, pelvis Comments [facility], [place] NAME: NILESH ABRAHAM [facility] REC#: [id number] PT STATUS: REG ER : 1980 PHYSICIAN: JEREMIE GOMEZ MD ADMIT DATE: 10/31/21/ER FS Draft Date of Exam:10/31/21 CT ABDOMEN/PELVIS W CT ABDOMEN/PELVIS W TECHNIQUE: Multiple contiguous axial images were obtained through the abdomen and pelvis after administration of intravenous contrast. All CT scans use one or more of the following dose optimizing techniques: automated exposure control, MA and/or KvP adjustment based on patient size and exam type or iterative reconstruction. INDICATION: Rapid weight loss. COMPARISON: 07/31/2019. FINDINGS: Lower chest: The lung bases are clear. No pericardial or pleural effusion. Peritoneum: No free intraperitoneal air or fluid. Liver and biliary system: The liver is normal. Gallbladder is contracted without radiopaque gallstones. Spleen and Pancreas: Spleen is normal. The pancreas enhances normally without mass lesion or peripancreatic inflammatory changes. Adrenals: Normal. tract: The kidneys enhance normally without suspicious mass or obstruction. Urinary bladder is distended without wall thickening. Prostate is normal in appearance. GI tract: Stomach is partially filled with fluid and there is no wall thickening. No bowel obstruction. No pericolonic inflammatory changes. Normal appendix. Vasculature and Lymph nodes: Normal caliber aorta. No abdominal or pelvic lymphadenopathy. Musculoskeletal: No concerning osseous lesion. IMPRESSION: 1. No acute obstructive or inflammatory process. 2. No lymphadenopathy or organomegaly. Dictated on workstation # [id number] Dict: 10/31/21 1318 Trans: 10/31/21 1331 [id number] Interpreted by: CAMACHO CARTER MD Electronically signed by: Departure Impression Primary Impression: Syncope Qualified Codes: R55 - Syncope and collapse Disposition: HOME, SELF-CARE Condition: Improved Departure-Patient Inst. Decision time for Depature: 13:45 Referrals: WILMA GERONIMO MD (PCP/Family) Primary Care Physician Patient Instructions: Syncope (Fainting) (DC) Add. Discharge Instructions: All discharge instructions reviewed with patient and/or family. Voiced unde rstanding. Drink plenty of fluids and get plenty of rest. Continue home medications as previously prescribed. Continue work-up as previously prescribed and follow-up with your doctor for recheck and further evaluation. Return for worse pain, fever, vomiting, weakness, breathing problems, passing out episodes, chest pain or other concerns as needed. Copy Copies To 1: WILMA GERONIMO MD, TIMOTHY D MD Oct 31, 2021 11:36
[2021-10-31 11:57] LABS: BASOPHILS # (AUTO) 0.1 10^3/uL (0.0-0.1); BASOPHILS % (AUTO) 1 % (0-10); EOSINOPHILS # (AUTO) 0.1 10^3/uL (0.0-0.3); EOSINOPHILS % (AUTO) 1 % (0-10); HEMATOCRIT 44 % (40-54); HEMOGLOBIN 14.4 g/dL (13.3-17.7); LYMPHOCYTES # (AUTO) 2.9 X 10^3 (1.0-4.0); LYMPHOCYTES % (AUTO) 41 % (12-44); MEAN CORPUSCULAR HEMOGLOBIN 28 pg (25-34); MEAN CORPUSCULAR HGB CONC 33 g/dL (32-36); MEAN CORPUSCULAR VOLUME 86 fL (80-99); MONOCYTES # (AUTO) 0.8 X 10^3 (0.0-1.0); MONOCYTES % (AUTO) 11 % (0-12); NEUTROPHILS # (AUTO) 3.3 X 10^3 (1.8-7.8); NEUTROPHILS % (AUTO) 46 % (42-75); PLATELET COUNT 321 10^3/uL (130-400); WHITE BLOOD COUNT 7.1 10^3/uL (4.3-11.0)
[2021-10-31 11:58] LABS: ALKALINE PHOSPHATASE 50 U/L (40-136); BILIRUBIN,TOTAL 0.4 MG/DL (0.1-1.0); BUN/CREATININE RATIO 13; CALCIUM 9.6 MG/DL (8.5-10.1); CARBON DIOXIDE 24 MMOL/L (21-32); CHLORIDE 106 MMOL/L (98-107); CREATININE SERUM 0.85 MG/DL (0.60-1.30); GFR ESTIMATED 99; GLUCOSE 86 MG/DL (70-105); MAGNESIUM 2.1 MG/DL (1.6-2.4); POTASSIUM 4.2 MMOL/L (3.6-5.0); SODIUM 142 MMOL/L (135-145)
[2021-10-31 11:59] LABS: ALANINE AMINOTRANSFERASE 16 U/L (0-55); ALBUMIN 4.7 GM/DL (3.2-4.5); TOTAL PROTEIN 6.5 GM/DL (6.4-8.2)
[2021-10-31] MEDS ORDERED: IOHEXOL 350 MG/ML 100 ML (OMNIPAQUE 350) VIAL IV ONE (13:00)
[2021-10-31] MEDS ORDERED: NS 100 ML (IVPB) BAG IV ONE (13:00)
[2021-10-31] MEDS ORDERED: HOLD METFORMIN - RECEIVED CONTRAST 20 ML VIAL IV SCH (13:00)
[2021-10-31 13:16] LABS: BILIRUBIN,URINE NEGATIVE (NEGATIVE); CLARITY,URINE CLEAR; COLOR,URINE YELLOW; GLUCOSE, URINE (UA) NEGATIVE (NEGATIVE); KETONES,URINE NEGATIVE (NEGATIVE); LEUKOCYTE ESTERASE ,URINE NEGATIVE (NEGATIVE); NITRITE,URINE NEGATIVE (NEGATIVE); PROTEIN,URINE NEGATIVE (NEGATIVE)
--- NOTE | 2021-10-31 13:30 | Diagnostic Imaging Report ---
CT ABDOMEN/PELVIS W TECHNIQUE: Multiple contiguous axial images were obtained through the abdomen and pelvis after administration of intravenous contrast. All CT scans use one or more of the following dose optimizing techniques: automated exposure control, MA and/or KvP adjustment based on patient size and exam type or iterative reconstruction. INDICATION: Rapid weight loss. COMPARISON: 07/31/2019. FINDINGS: Lower chest: The lung bases are clear. No pericardial or pleural effusion. Peritoneum: No free intraperitoneal air or fluid. Liver and biliary system: The liver is normal. Gallbladder is contracted without radiopaque gallstones. Spleen and Pancreas: Spleen is normal. The pancreas enhances normally without mass lesion or peripancreatic inflammatory changes. Adrenals: Normal. tract: The kidneys enhance normally without suspicious mass or obstruction. Urinary bladder is distended without wall thickening. Prostate is normal in appearance. GI tract: Stomach is partially filled with fluid and there is no wall thickening. No bowel obstruction. No pericolonic inflammatory changes. Normal appendix. Vasculature and Lymph nodes: Normal caliber aorta. No abdominal or pelvic lymphadenopathy. Musculoskeletal: No concerning osseous lesion. IMPRESSION: 1. No acute obstructive or inflammatory process. 2. No lymphadenopathy or organomegaly. Dictated by: Dictated on workstation # [id number]
[2021-10-31 13:33] LABS: BACTERIA,URINE NEGATIVE /HPF; RBC,URINE RARE /HPF
[2021-10-31 13:34] LABS: AMORPHOUS SEDIMENT,UR FEW AMOR URATES /LPF
[2021-10-31 13:37] LABS: AMPHETAMINE SCREEN, URINE NEGATIVE (NEGATIVE); BARBITURATE SCREEN URINE NEGATIVE (NEGATIVE); BENZODIAZEPINES SCREEN URINE NEGATIVE (NEGATIVE); CANNABINOID SCREEN, URINE POSITIVE (NEGATIVE); COCAINE SCREEN URINE NEGATIVE (NEGATIVE); METHADONE STAT NEGATIVE (NEGATIVE); METHAMPHETAMINE SCREEN URINE S NEGATIVE (NEGATIVE); OPIATE SCREEN URINE NEGATIVE (NEGATIVE); OXYCODONE STAT NEGATIVE (NEGATIVE); PROPOXYPHENE STAT NEGATIVE (NEGATIVE); TRICYCLIC ANTIDEPRESSANTS SCRE NEGATIVE (NEGATIVE)
[2021-10-31 13:57] VITALS: BP 121/81
== END 2021-10-31 14:02 | disposition home or self-care (01) ==
LOC: EDUNIT# 10:51 → ER FS 10:52
DX: R55 Syncope and collapse (principal); G89.29 Other chronic pain; M54.50 Low back pain, unspecified; Z79.891 Long term (current) use of opiate analgesic
CPT/HCPCS: 36415; 74177; 80053; 80306; 81000; 83735; 85025; 86141